=== PATIENT | female | born 1955 | race Caucasian/White ===

== ENCOUNTER → 2017-03-27 | Outpatient (CLI) | payer OTHER | LOC: M.RAD 10:56 | DX: J06.9 Acute upper respiratory infection, unspecified (principal); M25.78 Osteophyte, vertebrae ==

== ENCOUNTER → 2017-03-30 | Outpatient (CLI) | payer OTHER | LOC: M.ULTRA 11:24 | DX: Z09 Encounter for follow-up examination after completed treatment for conditions other than malignant neoplasm (principal); N63.10 Unspecified lump in the right breast, unspecified quadrant; R92.8 Other abnormal and inconclusive findings on diagnostic imaging of breast ==

== ENCOUNTER → 2017-05-04 | Outpatient (CLI) | payer OTHER | LOC: M.RAD 12:13 | DX: J06.9 Acute upper respiratory infection, unspecified (principal); J84.10 Pulmonary fibrosis, unspecified ==